=== PATIENT | female | born 1995 | race Two or more races ===

== ENCOUNTER 2018-12-03 00:44 | Emergency (ER) | payer MEDICAID ==
[~2018-12-03] VITALS: Ht 165.1 cm; Wt 56.7 kg
--- NOTE | 2018-12-03 00:46 | NUR ---
TO BED 6 BIB [employer] WITH [employer] C/O ETOH WITH VOMITING AND EMOTIONAL. PT AAOX4 NO ACUTE DISTRESS NOTED, RESP EVEN AND UNLABORED. PLACE PT ON CARDIAC MONITORING, CONTINUOUS POX. ER MD AT BEDSIDE TO EVAL PT WITH ORDERS RECEIVED. WILL CONTINUE TO MONITOR PT CLOSELY.
[2018-12-03] MEDS ORDERED: IV NS 0.9% 1,000 ML BAG IV ONE (01:00)
--- NOTE | 2018-12-03 01:08 | NUR ---
STARTED SL 18G TO L HAND, BLOOD DRAWN AND SENT TO LAB.
[2018-12-03 01:12] LABS: BASOPHILS # (AUTO) 0.1 /CMM (0.0-0.2); BASOPHILS % (AUTO) 0.6 % (0.0-2.0); EOSINOPHILS % (AUTO) 1.2 % (0.0-6.0); HEMATOCRIT 41 % (33-45); HEMOGLOBIN 14.3 g/dL (11.5-14.8); LYMPHOCYTES # (AUTO) 3.9 /CMM (0.8-4.8); LYMPHOCYTES % (AUTO) 40.8 % (20.0-44.0); MEAN CORPUSCULAR HGB CONC 35 g/dl (31.0-36.0); MEAN CORPUSCULAR VOLUME 85 fL (82-100); MONOCYTES # (AUTO) 0.5 /CMM (0.1-1.30); MONOCYTES % (AUTO) 5.8 % (2.0-12.0); NEUTROPHILS # (AUTO) 4.9 /CMM (1.8-8.9); NEUTROPHILS % (AUTO) 51.6 % (43.0-81.0); PLATELET COUNT (AUTO) 248 /CMM (150-450); RED BLOOD CELL COUNT(AUTO) 4.82 MIL/uL (4.0-5.2); WHITE BLOOD COUNT (AUTO) 9.5 K/uL (4.3-11.0)
[2018-12-03 01:20] LABS: CALCIUM, SERUM 8.2 mg/dL (8.5-10.1); CARBON DIOXIDE 17 mmol/L (21-32); CHLORIDE 101 mmol/L (98-107); CREATININE 1.1 mg/dL (0.6-1.3); GLUCOSE 122 mg/dL (74-106); POTASSIUM 3.3 mmol/L (3.5-5.1); SODIUM SERUM 138 mmol/L (136-145); UREA NITROGEN, BLOOD 21 mg/dL (7-18)
[2018-12-03 01:28] LABS: ALANINE AMINOTRANSFERASE 22 U/L (12-78); ALCOHOL, BLOOD 329 mg/dL (0-0); ALKALINE PHOSPHATASE 57 U/L (46-116); ASPARTATE AMINOTRANSFERASE 17 U/L (15-37); BILIRUBIN,DIRECT 0.2 mg/dL (0.0-0.2); BILIRUBIN,TOTAL 1.1 mg/dL (0.2-1.0); TOTAL PROTEIN, SERUM 7.3 g/dL (6.4-8.2)
[2018-12-03 01:29] LABS: ACETAMINOPHEN 0 ug/ml (10-30); SALICYLATE < 0.2 mg/dL (2.8-20.0)
[2018-12-03] MEDS ORDERED: ONDANSETRON HCL/PF - ER 4 MG/2 ML VIAL IV ONE (04:00)
[2018-12-03] MEDS ORDERED: ONDANSETRON HCL/PF 4 MG/2 ML VIAL ONE (04:00)
--- NOTE | 2018-12-03 04:33 | NUR ---
PT AAOX4 NO ACUTE DISTRESS NOTED, RESP EVEN AND UNLABORED. PT AMBULATORY TO THE BATHROOM WITH STEAYD GAIT NOTED. PT DENIES PAIN OR DISCOMFORT AT THIS TIME.
[2018-12-03 04:37] LABS: APPEARANCE,URINE Clear (CLEAR); BILIRUBIN,URINE Negative (NEGATIVE); BLOOD, URINE Negative Ery/uL (NEGATIVE); COLOR,URINE Yellow (YELLOW); KETONES,URINE Negative (NEGATIVE); LEUKOCYTE ESTERASE ,URINE Negative (NEGATIVE); NITRITE, URINE Negative (NEGATIVE); PH,URINE 5.5 (5.0-8.0); PROTEIN,URINE Negative (NEGATIVE); UGLUCOSE Negative (NEGATIVE); UROBILINOGEN,URINE 0.2 EU/dL (0.2)
--- NOTE | 2018-12-03 04:37 | NUR ---
URINE COLLECTED AND SENT TO LAB
--- NOTE | 2018-12-03 05:25 | NUR ---
IV removed. Catheter intact and site benign. Pressure and 4x4 applied to site. No bleeding noted. Patient discharged to home in stable condition. Written and verbal after care instructions given. Patient verbalizes understanding of instruction. ambulatory with a steady gait. advice pt not to drive or operate any machinery due to alcohol intoxication. pt verbalize understanding.
[2018-12-03 05:27] VITALS: BP 122/63
== END 2018-12-03 05:27 | disposition home or self-care (01) ==
LOC: ER 00:46
DX: F10.129 Alcohol abuse with intoxication, unspecified (principal); E86.0 Dehydration; E87.6 Hypokalemia; Y90.8 Blood alcohol level of 240 mg/100 ml or more
CPT/HCPCS: 36415; 80048; 80076; 80305; 80307; 80329; 81001; 85025; 96361; 96374; 99283; G0480; J2405; J7030; 81000-TC

== ENCOUNTER 2019-06-21 11:59 | Emergency (ER) | payer MEDICAID ==
[~2019-06-21] VITALS: Ht 160 cm; Wt 54.4 kg
[2019-06-21 12:40] LABS: BASOPHILS % (AUTO) 0.4 % (0.0-2.0); EOSINOPHILS % (AUTO) 0.2 % (0.0-6.0); HEMATOCRIT 39 % (33-45); HEMOGLOBIN 12.6 g/dL (11.5-14.8); LYMPHOCYTES # (AUTO) 2.2 /CMM (0.8-4.8); LYMPHOCYTES % (AUTO) 21.9 % (20.0-44.0); MEAN CORPUSCULAR HGB CONC 33 g/dl (31.0-36.0); MEAN CORPUSCULAR VOLUME 81 fL (82-100); MONOCYTES # (AUTO) 1.3 /CMM (0.1-1.30); MONOCYTES % (AUTO) 12.9 % (2.0-12.0); NEUTROPHILS # (AUTO) 6.4 /CMM (1.8-8.9); NEUTROPHILS % (AUTO) 64.6 % (43.0-81.0); PLATELET COUNT (AUTO) 301 /CMM (150-450); RED BLOOD CELL COUNT(AUTO) 4.74 MIL/uL (4.0-5.2); WHITE BLOOD COUNT (AUTO) 9.9 K/uL (4.3-11.0)
[2019-06-21 12:48] LABS: CALCIUM, SERUM 8.8 mg/dL (8.5-10.1); CARBON DIOXIDE 23 mmol/L (21-32); CHLORIDE 106 mmol/L (98-107); CREATININE 0.9 mg/dL (0.6-1.3); GLUCOSE 80 mg/dL (74-106); POTASSIUM 3.3 mmol/L (3.5-5.1); SODIUM SERUM 141 mmol/L (136-145); UREA NITROGEN, BLOOD 16 mg/dL (7-18)
[2019-06-21 12:54] LABS: ALANINE AMINOTRANSFERASE 26 U/L (12-78); ALBUMIN 3.5 g/dL (3.4-5.0); ALCOHOL, BLOOD < 3 mg/dL (0-0); ALKALINE PHOSPHATASE 62 U/L (46-116); ASPARTATE AMINOTRANSFERASE 35 U/L (15-37); BILIRUBIN,DIRECT 0.2 mg/dL (0.0-0.2); BILIRUBIN,TOTAL 1.1 mg/dL (0.2-1.0); TOTAL PROTEIN, SERUM 7.2 g/dL (6.4-8.2)
[2019-06-21 12:55] LABS: ACETAMINOPHEN 0 ug/ml (10-30); SALICYLATE 0.8 mg/dL (2.8-20.0)
--- NOTE | 2019-06-21 14:08 | NUR ---
TOOK OVER PATIENT CARE. PT AAOX4. BIB RA 78,[employer] WAS CALLED BECAUSE SHE WAS WALKING INTO TRAFFIC,DENIES SI/HI,STS, "I WAS BORED" AND "I WANNA KNOW HOW THEY REACT." PLACED ON MONITOR AND PULSE OX. NO ACUTE DISTRESS NOTED.
--- NOTE | 2019-06-21 14:21 | NUR ---
URINE COLLECTED AND SENT TO LAB
[2019-06-21 14:33] LABS: APPEARANCE,URINE Clear (CLEAR); BILIRUBIN,URINE MODERATE (NEGATIVE); BLOOD, URINE Trace-intact Ery/uL (NEGATIVE); COLOR,URINE Dark (YELLOW); KETONES,URINE 80 (NEGATIVE); LEUKOCYTE ESTERASE ,URINE Negative (NEGATIVE); NITRITE, URINE Negative (NEGATIVE); PH,URINE 5.5 (5.0-8.0); PROTEIN,URINE 30 mg/dl (NEGATIVE); UGLUCOSE Negative (NEGATIVE)
[2019-06-21 14:37] LABS: BACTERIA,URINE Few /HPF (None Seen); SQUAMOUS EPITHELIAL CELL,UR Few /HPF (None Seen)
[2019-06-21] MEDS ORDERED: OLANZAPINE 5 MG TABLET PO ONE (15:00)
[2019-06-21] MEDS ORDERED: POTASSIUM CHLORIDE 20 MEQ TAB.PRT.SR PO ONE ×2 (15:00→15:01)
[2019-06-21] MEDS ORDERED: OLANZAPINE 5 MG TABLET ONE (15:00)
[2019-06-21] MEDS ORDERED: IV NS 0.9% 1,000 ML BAG IV ONE (15:00)
--- NOTE | 2019-06-21 15:40 | NUR ---
[employer] AT BEDSIDE
--- NOTE | 2019-06-21 15:51 | NUR ---
Social service consult requested by MICHAEL Manning for psychiatric evaluation. Per MD notes, pt was brought to [facility] ED by rescue ambulance. Per EMS, pt. was walking in the middle of traffic stating, " I am bored" and " I wanna know how they react." Pt. tested positive for methamphetamines and marijuana. NUMERICAL CONTROL LATHE OPERATOR met with the pt. bedside. Pt. is alert and oriented x 4. Pt. appears disheveled. Pt. identifies as transgender. Pt. had the blanket over her mouth but provided eye contact. Pt's mood is congruent. Pt denied drug use. NUMERICAL CONTROL LATHE OPERATOR informed pt. that her tox screen was positive for methamphetamines and marijuana. Pt. stated she does smoke Marijuana but continued to deny methamphetamine use. Pt. states she lives with her friend Marielena at [address] [place] [address], in [place]. NUMERICAL CONTROL LATHE OPERATOR requested for Majoncjoleen's contact number, however pt. did not have it. Pt. 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 Pt. states, she feels safe in the community. Pt denies any psychiatric diagnoses. Pt. denies suicidal and homicidal ideations. Pt. wishes to be discharged back to the [place] address. Pt. denies homelessness. Pt. will require a TAP card upon discharge. NUMERICAL CONTROL LATHE OPERATOR provided pt. with active listening, emotional support and supportive counseling. Pt. declined resources to drug treatment programs. NUMERICAL CONTROL LATHE OPERATOR updated MICHAEL Espinal and pt's RN Darien with aforementioned information and pt's discharge plan.
--- NOTE | 2019-06-21 16:36 | NUR ---
Patient is resting comfortably in bed with eyes closed. Easily aroused. VSS.
--- NOTE | 2019-06-21 17:58 | NUR ---
PATIENT ASLEEP. VSS.
--- NOTE | 2019-06-21 22:03 | NUR ---
Patient is resting comfortably in bed. Easily aroused. VSS.
--- NOTE | 2019-06-22 01:21 | NUR ---
PT ASLEEP. VSS.
--- NOTE | 2019-06-22 02:25 | NUR ---
Patient is resting comfortably in bed with eyes closed. Easily aroused. VSS
--- NOTE | 2019-06-22 03:16 | NUR ---
Patient is resting comfortably in bed with eyes closed. Easily aroused. VSS
--- NOTE | 2019-06-22 08:41 | NUR ---
Patient given written and verbal discharge instructions. Patient verbalizes understanding of instructions. Patient is ambulatory with steady gait. Refuses offer of assisted placement. Patient given list of available shelters in surrounding area.
[2019-06-22 08:43] VITALS: BP 120/82
== END 2019-06-22 08:43 | disposition home or self-care (01) ==
LOC: ER 11:59
DX: F15.959 Other stimulant use, unspecified with stimulant-induced psychotic disorder, unspecified (principal); E86.0 Dehydration; R82.4 Acetonuria; E87.6 Hypokalemia; F12.90 Cannabis use, unspecified, uncomplicated
CPT/HCPCS: 36415; 80048; 80076; 80305; 80307; 80329; 81001; 85025; 96360; 99283; G0480; J7030; 81000-TC